=== PATIENT | male | born 1995 | race African-American/Black ===

== ENCOUNTER 2018-08-05 19:16 | Emergency (ER) | payer OTHER ==
[2018-08-05 19:47] VITALS: BP 128/77; PULSE 77; TEMP 99.3; BMI 40.3
--- NOTE | 2018-08-05 19:47 | PDOC ---
Rapid Medical Evaluation Chief Complaint: Wound Time Seen by Provider: 08/05/18 19:43 Medical Evaluation: Allergies Allergy/AdvReac Type Severity Reaction Status Date / Time No Known Allergies Allergy Verified 08/05/18 19:43 08/05/18 19:43 I have performed a brief in-person evaluation of this patient. The patient presents with a chief complaint of: swellling and pain to left side of face- used pin and tried to I and D area 2 days ago. Pertinent physical exam findings: Swelling and erythema / ~ 7cm2 to lateral I have ordered the following: wound culture The patient will proceed to the ED for further evaluation. Discharge Disposition - Diagnosis Cellulitis - Referrals - Patient Instructions - Post Discharge Activity
--- NOTE | 2018-08-05 20:20 | PDOC ---
History of Present Illness - General Chief Complaint: Wound Stated Complaint: INGROWN HAIR Time Seen by Provider: 08/05/18 19:43 - History of Present Illness Initial Comments: 08/05/18 20:17 23-year-old male without comorbidities presents for evaluation of the painful swollen area on his left cheek 3 days without systemic symptoms Past History - Past Medical History Allergies/Adverse Reactions: Allergies Allergy/AdvReac Type Severity Reaction Status Date / Time No Known Allergies Allergy Verified 08/05/18 19:46 Home Medications: Ambulatory Orders Cephalexin [Keflex] 500 mg PO QID #40 capsule 08/05/18 Sulfamethoxazole/Trimethoprim [Bactrim Ds -] 1 tab PO BID #14 tablet 08/05/18 COPD: No - Suicide/Smoking/Psychosocial Hx Smoking History: Current every day smoker Have you smoked in the past 12 months: Yes Number of Cigarettes Smoked Daily: 2 Information on smoking cessation initiated: No Hx Alcohol Use: No Drug/Substance Use Hx: No Review of Systems - Review of Systems Constitutional: No: Fever Integumentary: Yes: Lesions *Physical Exam - Vital Signs Last Vital Signs Temp Pulse Resp BP Pulse Ox 99.3 F 77 18 128/77 100 08/05/18 19:43 08/05/18 19:43 08/05/18 19:43 08/05/18 19:43 08/05/18 19:43 - Physical Exam Comments: 08/05/18 20:18 There is a nonfluctuant tender indurated firm area on the left cheek on the skin just above the inferior angle of mandible Medical Decision Making - Medical Decision Making 08/05/18 20:18 Is a folliculitis which is indurated and firm and cannot be drained at this point I recommended warm compresses placed the patient on Bactrim and Keflex and I will have him follow-up with dermatology *DC/Admit/Observation/Transfer Diagnosis at time of Disposition: Cellulitis, Folliculitis - Discharge Dispostion Disposition: HOME Condition at time of disposition: Stable Decision to Admit order: No - Referrals Referrals: Dee Dee Hyman [Primary Care Provider] - Karina Vergara MD [Staff Physician] - - Patient Instructions Additional Instructions: Please use warm compresses to the area 5-6 times a day. Please take the antibiotics as directed. Tylenol and Motrin as directed for pain. Follow-up with dermatology in 2-3 days for further evaluation and treatment options. - Post Discharge Activity
== END 2018-08-05 20:33 | disposition home or self-care (01) ==
LOC: JERFT 19:16
DX: L03.211 Cellulitis of face (principal); L73.8 Other specified follicular disorders
CPT/HCPCS: 99281-25